=== PATIENT | male | born 1995 | race African-American/Black ===

== ENCOUNTER 2020-02-13 21:56 | Emergency (ER) | payer BC, MEDICAID ==
[~2020-02-13] VITALS: Ht 188 cm; Wt 77.0 kg
[2020-02-13 22:15] VITALS: BP 120/78
[2020-02-13] MEDS ORDERED: AMOXICILLIN/POTASSIUM CLAVULANATE 875/125MG TAB PO ONE (23:15)
[2020-02-13] MEDS ORDERED: ACETAMINOPHEN WITH CODEINE 300/30MG TABLET PO ONE (23:15)
== END 2020-02-13 23:26 | disposition home or self-care (01) ==
LOC: ER 21:56
DX: K08.89 Other specified disorders of teeth and supporting structures (principal)
CPT/HCPCS: 99283